=== PATIENT | male | born 1970 | race Hispanic/Latino ===

== ENCOUNTER 2017-06-17 15:48 | Emergency (ER) | payer SELFPAY ==
[2017-06-17] MEDS ORDERED: Ibuprofen 200 MG TAB ONE (16:03)
--- NOTE | 2017-06-17 16:41 | RAD ---
RIGHT SHOULDER TWO VIEWS: History: Injury with shoulder pain. FINDINGS/IMPRESSION: There is an anterior shoulder dislocation. No definite fracture identified. POS: [facility]
--- NOTE | 2017-06-17 16:42 | RAD ---
RIGHT HUMERUS TWO VIEWS: History: Injury with shoulder pain. FINDINGS/IMPRESSION: There is an anterior shoulder dislocation. No fracture identified. POS: [facility]
[2017-06-17] MEDS ORDERED: Adacel (T-DAP) 0.5 ML VIAL ONE (17:08)
[2017-06-17] MEDS ORDERED: Bacitracin Zinc 1 Packet ONE (17:08)
--- NOTE | 2017-06-17 18:13 | RAD ---
RIGHT SHOULDER TWO VIEWS: 06/17/17 HISTORY: Comparison is made to a prior examination which indicated a right shoulder subcoracoid anterior dislo cation. IMPRESSION: There has been reduction of the previously noted anterior subcoracoid glenohumeral joint dislocation. On the prior study there is concern for the possibility of an associated bony Bankart defect, consid er nonemergent followup right shoulder MRI, particularly if there is persistent instability. POS: [facility]
== END 2017-06-17 18:51 | disposition home or self-care (01) ==
LOC: ERS 15:48
DX: S43.014A Anterior dislocation of right humerus, initial encounter (principal); E10.9 Type 1 diabetes mellitus without complications; V19.9XXA Pedal cyclist (driver) (passenger) injured in unspecified traffic accident, initial encounter
CPT/HCPCS: 23650; 90471; 90715

== ENCOUNTER 2022-04-10 14:39 | Outpatient (CLI) | payer OTHER | END 2022-04-10 14:40 | disposition home or self-care (01) | LOC: ULT 14:39 | PROVIDERS: ATTEND Nurse Practitioner Family | DX: N40.1 Benign prostatic hyperplasia with lower urinary tract symptoms (principal) | CPT/HCPCS: 76856 ==